=== PATIENT | male | born 1955 | race African-American/Black ===

== ENCOUNTER 2017-03-10 20:54 | Inpatient (IN) | payer MEDICAID ==
[~2017-03-10] VITALS: Ht 167.6 cm; Wt 67.2 kg
[2017-03-11 00:21] LABS: BASOPHILS % 1.1 % (0.0-2.0); EOSINOPHILS % 2.7 % (0.0-5.0); HEMATOCRIT. 28.8 % (42.0-52.0); LYMPHOCYTES % 27.4 % (20.0-50.0); MEAN CORPUSCULAR HEMOGLOBIN 32.5 pg (28.0-32.0); MEAN CORPUSCULAR VOLUME 103.5 fL (80.0-94.0); MEAN PLATELET VOLUME 7.4 fl (7.4-10.4); MONOCYTES % 11.8 % (2.0-8.0); PLATELET 303 x1000/uL (130-400); RED BLOOD CELL COUNT 2.78 mill/uL (4.7-6.1); RED CELL DISTRIBUTION WIDTH 17.2 % (11.6-14.6)
[2017-03-11 00:38] LABS: CARBON DIOXIDE 14 mEq/L (21-32); CHLORIDE 118 mEq/L (98-107); ETHANOL BLOOD < 10 mg/dL; TROPONIN I 0.02 ng/mL (0.00-0.04)
[2017-03-11 01:21] LABS: *AMPHETAMINES SCREEN URINE NEGATIVE (NEGATIVE); *BARBITURATES SCREEN URINE NEGATIVE (NEGATIVE); *BENZODIAZEPINES SCREEN URINE NEGATIVE (NEGATIVE); *COCAINE SCREEN URINE PRESUMTIVE POSITIVE (NEGATIVE); CANNABINOID URINE SCREEN NEGATIVE (NEGATIVE); METHADONE URINE SCREEN NEGATIVE (NEGATIVE); OPIATES URINE SCREEN PRESUMTIVE POSITIVE (NEGATIVE); PHENCYCLIDINE URINE SCREEN NEGATIVE (NEGATIVE)
[2017-03-11] MEDS ORDERED: IPRATROPIUM/ALBUTEROL 0.5-3(2.5)MG/3ML NEB INH PRN (16:15)
[2017-03-11] MEDS ORDERED: DEXTROSE 50% WATER 50ML SYRINGE IV PRN (16:15)
[2017-03-11] MEDS ORDERED: CLONIDINE 0.1MG TABLET PO PRN (16:15)
[2017-03-11] MEDS: BLOOD SUGAR DIAGNOSTIC STRIP TEST SCH ×2 (18:02→23:22)
[2017-03-11] MEDS: AMLODIPINE 10MG TABLET PO SCH (18:03)
[2017-03-11] MEDS ORDERED: INSULIN LISPRO 100 UNITS/ML SUBCUT SCH (18:20)
[2017-03-11 18:22] LABS: BG BASE EXCESS -17.3 mmol/L (-2.0-2.0); BG CARBOXYHEMOGLOBIN 0.3 % (0.5-1.5); BG DEOXYHEMOGLOBIN 3.2 % (0.0-5.0); BG FRACTION INSPIRED OXYGEN 32; BG HCO3 ACT 10.4 mmol/L (22.0-26.0); BG METHEMOGLOBIN 0.2 % (0.0-1.5); BG OXYGEN SATURATION 96.8 % (92.0-98.5); BG OXYHEMOGLOBIN 96.3 % (94.0-97.0); BG PCO2 31.2 mmHg (35.0-45.0); BG PH 7.141 (7.350-7.450); BG SAMPLE SITE RIGHT RADIAL; BG TOTAL HEMOGLOBIN 11.1 g/dL (12.0-18.0); BG VENT MODE NASAL CANNULA
[2017-03-11 21:06] LABS: BASOPHILS % 0.5 % (0.0-2.0); EOSINOPHILS % 0.1 % (0.0-5.0); HEMATOCRIT. 30.5 % (42.0-52.0); HEMOGLOBIN. 9.6 g/dL (14.0-18.0); LYMPHOCYTES % 7.8 % (20.0-50.0); MEAN CORPUSCULAR HEMOGLOBIN 32.6 pg (28.0-32.0); MEAN CORPUSCULAR VOLUME 104.1 fL (80.0-94.0); MEAN PLATELET VOLUME 7.5 fl (7.4-10.4); MONOCYTES % 5.5 % (2.0-8.0); NEUTROPHILS % 86.1 % (40.0-76.0); PLATELET 306 x1000/uL (130-400); RED BLOOD CELL COUNT 2.93 mill/uL (4.7-6.1); RED CELL DISTRIBUTION WIDTH 17.5 % (11.6-14.6)
[2017-03-11 23:05] VITALS: BP 139/49
[2017-03-11 23:07] LABS: TROPONIN I 0.03 ng/mL (0.00-0.04)
[2017-03-11 23:15] VITALS: BP 132/81
[2017-03-11 23:30] VITALS: BP_SYST 115; BP_SYST 139; BP_DIAS 49; BP_DIAS 76
[2017-03-11 23:47] VITALS: BP 129/77
[2017-03-12] VITALS (82 sets, daily range): BP systolic 82–145; BP diastolic 48–107
[2017-03-12] MEDS ORDERED: SODIUM BICARBONATE 8.4% 1 MEQ/ML 50ML SYR IV NR ×2 (00:30→08:30)
[2017-03-12 00:41] LABS: CLARITY URINE CLEAR (CLEAR); COLOR URINE YELLOW (YELLOW); GLUCOSE URINE 1+ (NEGATIVE); KETONES URINE TRACE (NEGATIVE); LEUKOCYTE ESTERASE URINE NEGATIVE (NEGATIVE); NITRITE URINE NEGATIVE (NEGATIVE); OCCULT BLOOD URINE 2+ (NEGATIVE); PROTEIN URINE 4+ (NEGATIVE); SPECIFIC GRAVITY URINE 1.018 (1.005-1.030); UROBILINOGEN URINE 0.2 E.U./dL (0.2-1.0)
[2017-03-12] MEDS ORDERED: SODIUM POLYSTYRENE SULFONATE 15 G/60 ML BOT PO NR (01:00)
[2017-03-12] MEDS: SODIUM BICARBONATE 100 MEQ in DEXTROSE 5% WATER 1,000 ML IV SCH ×2 (03:09→18:52)
[2017-03-12 06:07] LABS: BASOPHILS % 0.2 % (0.0-2.0); EOSINOPHILS % 0.2 % (0.0-5.0); HEMATOCRIT. 30.5 % (42.0-52.0); HEMOGLOBIN. 9.4 g/dL (14.0-18.0); LYMPHOCYTES % 7.2 % (20.0-50.0); MEAN CORPUSCULAR HEMOGLOBIN 32.1 pg (28.0-32.0); MEAN CORPUSCULAR VOLUME 104.4 fL (80.0-94.0); MEAN PLATELET VOLUME 8.2 fl (7.4-10.4); MONOCYTES % 5.8 % (2.0-8.0); NEUTROPHILS % 86.6 % (40.0-76.0); PLATELET 302 x1000/uL (130-400); RED BLOOD CELL COUNT 2.93 mill/uL (4.7-6.1); RED CELL DISTRIBUTION WIDTH 17.4 % (11.6-14.6)
[2017-03-12 07:15] LABS: CHLORIDE 121 mEq/L (98-107); CREATINE KINASE 936 IU/L (39-308); HDL CHOLESTEROL 78 mg/dL (40-59); LDL CHOLESTEROL 129 mg/dL (5-100); TROPONIN I 0.05 ng/mL (0.00-0.04)
[2017-03-12 07:35] LABS: CARBON DIOXIDE 15 mEq/L (21-32)
[2017-03-12 07:55] LABS: PHOSPHORUS 9.9 mg/dL (2.5-4.9)
[2017-03-12 08:01] LABS: HEPATITIS B SURFACE ANTIGEN NEGATIVE
[2017-03-12] MEDS: INSULIN LISPRO 100 UNITS/ML SUBCUT SCH ×4 (08:20→20:45)
[2017-03-12 08:29] LABS: BG BASE EXCESS -12.4 mmol/L (-2.0-2.0); BG DEOXYHEMOGLOBIN 3.7 % (0.0-5.0); BG FRACTION INSPIRED OXYGEN 28; BG HCO3 ACT 14.9 mmol/L (22.0-26.0); BG METHEMOGLOBIN 0.3 % (0.0-1.5); BG OXYGEN SATURATION 96.3 % (92.0-98.5); BG PCO2 39.3 mmHg (35.0-45.0); BG PH 7.196 (7.350-7.450); BG PO2 94.7 mmHg (75.0-100.0); BG SAMPLE SITE RIGHT RADIAL; BG TOTAL HEMOGLOBIN 9.8 g/dL (12.0-18.0); BG VENT MODE NASAL CANNULA
[2017-03-12] MEDS: BLOOD SUGAR DIAGNOSTIC STRIP TEST SCH ×4 (08:32→20:45)
[2017-03-12 09:29] LABS: HEPATITIS B CORE AB IGM NEGATIVE
[2017-03-12 09:30] LABS: HEPATITIS A AB IGM NEGATIVE (NEGATIVE)
[2017-03-12] MEDS ORDERED: PIPERACILLIN/TAZ 3.375G PREMIX 50 ML IV SCH (10:15)
[2017-03-12] MEDS: PANTOPRAZOLE SODIUM 40 MG/VIAL IV SCH (11:09)
[2017-03-12] MEDS: AMLODIPINE 10MG TABLET PO SCH (11:09)
[2017-03-12 11:44] LABS: PROTHROMBIN TIME 10.4 sec (9.4-11.6)
[2017-03-12 11:48] LABS: CLARITY URINE CLEAR (CLEAR); COLOR URINE YELLOW (YELLOW); GLUCOSE URINE 2+ (NEGATIVE); KETONES URINE TRACE (NEGATIVE); LEUKOCYTE ESTERASE URINE NEGATIVE (NEGATIVE); NITRITE URINE NEGATIVE (NEGATIVE); OCCULT BLOOD URINE 2+ (NEGATIVE); PH URINE 6.5 (4.5-8.0); PROTEIN URINE 4+ (NEGATIVE); UROBILINOGEN URINE 0.2 E.U./dL (0.2-1.0)
[2017-03-12] MEDS: LORAZEPAM 2MG/ML CPJ IV PRN (11:59)
[2017-03-12] MEDS ORDERED: VANCOMYCIN 1 G PREMIX 200 ML IV NR (12:00)
[2017-03-12] MEDS: MORPHINE SULFATE 4 MG/ML CPJ (NOT FOR IM USE) IV PRN (13:14)
[2017-03-12] MEDS ORDERED: LORAZEPAM 2MG/ML CPJ IV NR (13:15)
[2017-03-12] MEDS: ENOXAPARIN 30MG/0.3ML SYR SUBCUT SCH (13:26)
[2017-03-12] MEDS ORDERED: NOREPINEPHRINE 8 MG in DEXT 5% WATER 242 ML IV PRN (16:00)
[2017-03-12] MEDS: IPRATROPIUM/ALBUTEROL 0.5-3(2.5)MG/3ML NEB HHN SCH ×2 (16:23→19:48)
[2017-03-12] MEDS ORDERED: BISACODYL 10MG SUPP PR PRN (17:45)
[2017-03-12] MEDS ORDERED: NA PHOS,M-B/NA PHOS,DI-BA ENEMA 118ML PR NR (18:00)
[2017-03-12] MEDS: PIPERACILLIN/TAZ 2.25G PREMIX 50 ML IV SCH ×2 (18:16→21:40)
[2017-03-12] MEDS ORDERED: NA PHOS,M-B/NA PHOS,DI-BA ENEMA 118ML PR PRN (18:28)
[2017-03-13] VITALS (65 sets, daily range): BP systolic 88–163; BP diastolic 55–92
[2017-03-13] MEDS: IPRATROPIUM/ALBUTEROL 0.5-3(2.5)MG/3ML NEB HHN SCH ×4 (02:05→20:07)
[2017-03-13 07:33] LABS: HEMATOCRIT. 26.5 % (42.0-52.0); HEMOGLOBIN. 8.5 g/dL (14.0-18.0); MEAN CORPUSCULAR VOLUME 99.4 fL (80.0-94.0); MEAN PLATELET VOLUME 8.5 fl (7.4-10.4); PLATELET 241 x1000/uL (130-400); RED BLOOD CELL COUNT 2.67 mill/uL (4.7-6.1); RED CELL DISTRIBUTION WIDTH 16.9 % (11.6-14.6)
[2017-03-13] MEDS: BLOOD SUGAR DIAGNOSTIC STRIP TEST SCH ×4 (07:50→22:33)
[2017-03-13] MEDS ORDERED: POTASSIUM CHLORIDE 20MEQ TABLET SR PO SCH (08:15)
[2017-03-13] MEDS: INSULIN LISPRO 100 UNITS/ML SUBCUT SCH ×3 (08:20→22:30)
[2017-03-13 09:07] LABS: ABSOLUTE MONOCYTES 0.7 x10E3/uL (0.1-0.9); ABSOLUTE NEUTROPHILS 11.2 x10E3/uL (1.4-7.0); BASOPHILS 0 % (.); HEMATOCRIT 29.1 % (37.5-51.0); HEMOGLOBIN 9.1 g/dL (12.6-17.7); IMMATURE GRANULOCYTES 0 % (.); LYMPHOCYTES 8 % (.); MEAN CORPUSCULAR HEMOGLOBIN 31.5 pg (26.6-33.0); MEAN CORPUSCULAR HGB CONC. 31.3 g/dL (31.5-35.7); MEAN CORPUSCULAR VOLUME 101 fL (79-97); MONOCYTES 5 % (.); NEUTROPHILS 87 % (.); PLATELETS 348 x10E3/uL (150-379); RBC 2.89 x10E6/uL (4.14-5.80); RED CELL DISTRIBUTION WIDTH 16.5 % (12.3-15.4)
[2017-03-13] MEDS: PANTOPRAZOLE SODIUM 40 MG/VIAL IV SCH (09:25)
[2017-03-13] MEDS: SODIUM CHLORIDE 0.45% 1,000 ML IV SCH (09:26)
[2017-03-13] MEDS: AMLODIPINE 5MG TABLET PO SCH ×2 (09:26→22:36)
[2017-03-13] MEDS: ENOXAPARIN 30MG/0.3ML SYR SUBCUT SCH (09:27)
[2017-03-13] MEDS ORDERED: VANCOMYCIN 500 MG PREMIX 100 ML IV SCH (12:00)
[2017-03-13 13:12] LABS: % CD 3 POS. LYMPHOCYTES 83.3 % (57.5-86.2); % CD 4 POS. LYMPHOCYTES 33.1 % (30.8-58.5); % CD 8 POS. LYMPH 49.7 % (12.0-35.5); ABSOLUTE CD 3 833 /uL (622-2402); ABSOLUTE CD 4 HELPER 331 /uL (359-1519); ABSOLUTE CD 8 SUPPRESSOR 497 /uL (109-897); CD4/CD8 RATIO 0.67 (0.92-3.72)
[2017-03-13] MEDS: PIPERACILLIN/TAZ 2.25G PREMIX 50 ML IV SCH ×2 (13:22→23:05)
[2017-03-13] MEDS: MORPHINE SULFATE 4 MG/ML CPJ (NOT FOR IM USE) IV PRN ×2 (13:22→20:13)
[2017-03-13] MEDS: LEVOTHYROXINE SODIUM 50MCG TABLET PO SCH (13:22)
[2017-03-13 14:09] LABS: PLATELET ESTIMATE NORMAL
[2017-03-14] VITALS (14 sets, daily range): BP systolic 92–123; BP diastolic 53–82
[2017-03-14] MEDS: IPRATROPIUM/ALBUTEROL 0.5-3(2.5)MG/3ML NEB HHN SCH ×4 (01:44→21:13)
[2017-03-14] MEDS: LEVOTHYROXINE SODIUM 50MCG TABLET PO SCH (05:59)
[2017-03-14] MEDS: PIPERACILLIN/TAZ 2.25G PREMIX 50 ML IV SCH ×3 (05:59→21:05)
[2017-03-14] MEDS: BLOOD SUGAR DIAGNOSTIC STRIP TEST SCH ×4 (06:01→21:09)
[2017-03-14] MEDS: INSULIN LISPRO 100 UNITS/ML SUBCUT SCH ×4 (07:20→21:00)
[2017-03-14 07:32] LABS: BASOPHILS % 0.4 % (0.0-2.0); EOSINOPHILS % 1.7 % (0.0-5.0); HEMATOCRIT. 26.2 % (42.0-52.0); HEMOGLOBIN. 8.4 g/dL (14.0-18.0); LYMPHOCYTES % 12.5 % (20.0-50.0); MEAN CORPUSCULAR VOLUME 99.1 fL (80.0-94.0); MEAN PLATELET VOLUME 8.4 fl (7.4-10.4); MONOCYTES % 7.9 % (2.0-8.0); NEUTROPHILS % 77.5 % (40.0-76.0); PLATELET 246 x1000/uL (130-400); RED BLOOD CELL COUNT 2.64 mill/uL (4.7-6.1); RED CELL DISTRIBUTION WIDTH 16.4 % (11.6-14.6)
[2017-03-14] MEDS ORDERED: HEPARIN SODIUM 1,000 UNIT/1ML VIAL IV NR (09:00)
[2017-03-14] MEDS: MORPHINE SULFATE 4 MG/ML CPJ (NOT FOR IM USE) IV PRN (09:04)
[2017-03-14 09:17] LABS: PHOSPHORUS 8.7 mg/dL (2.5-4.9)
[2017-03-14] MEDS: PANTOPRAZOLE SODIUM 40 MG/VIAL IV SCH (10:49)
[2017-03-14] MEDS: ONDANSETRON HCL 4MG/2ML VIAL IV PRN (10:49)
[2017-03-14] MEDS: ENOXAPARIN 30MG/0.3ML SYR SUBCUT SCH (10:51)
[2017-03-14] MEDS: AMLODIPINE 5MG TABLET PO SCH ×2 (10:51→21:00)
[2017-03-14] MEDS ORDERED: TAMS0.4C31 PO (11:47)
[2017-03-14] MEDS ORDERED: MOME13HF INH (11:47)
[2017-03-14] MEDS ORDERED: FOLI-43 PO (11:47)
[2017-03-14] MEDS ORDERED: AMLO10TA80 PO (11:47)
[2017-03-14] MEDS ORDERED: CLOT45CR7 TP (11:47)
[2017-03-14] MEDS ORDERED: CITR30SO2 PO (11:47)
[2017-03-14] MEDS ORDERED: REN800 PO (11:47)
[2017-03-14] MEDS ORDERED: ABAC1TAB14 PO (11:47)
[2017-03-14] MEDS ORDERED: ZIAG3 PO (11:47)
[2017-03-14] MEDS ORDERED: DOLU50TA PO (11:47)
[2017-03-14] MEDS ORDERED: LORA0.5T2 PO (11:47)
[2017-03-14] MEDS ORDERED: LAMI100T PO (11:47)
[2017-03-14] MEDS: SODIUM CHLORIDE 0.45% 1,000 ML IV SCH (12:20)
[2017-03-14] MEDS ORDERED: VANCOMYCIN 1 G PREMIX 200 ML IV NR (14:00)
[2017-03-14] MEDS: LORAZEPAM 2MG/ML CPJ IV PRN (21:22)
[2017-03-15] VITALS (12 sets, daily range): BP systolic 104–145; BP diastolic 61–85
[2017-03-15] MEDS: IPRATROPIUM/ALBUTEROL 0.5-3(2.5)MG/3ML NEB HHN SCH ×2 (02:21→20:48)
[2017-03-15] MEDS: PIPERACILLIN/TAZ 2.25G PREMIX 50 ML IV SCH ×3 (05:41→22:10)
[2017-03-15] MEDS: BLOOD SUGAR DIAGNOSTIC STRIP TEST SCH ×4 (05:50→21:00)
[2017-03-15] MEDS: SODIUM CHLORIDE 0.45% 1,000 ML IV SCH ×2 (05:50→23:37)
[2017-03-15] MEDS: LEVOTHYROXINE SODIUM 50MCG TABLET PO SCH (05:50)
[2017-03-15] MEDS: INSULIN LISPRO 100 UNITS/ML SUBCUT SCH ×4 (07:20→21:00)
[2017-03-15] MEDS: AMLODIPINE 5MG TABLET PO SCH ×2 (09:00→21:13)
[2017-03-15] MEDS: PANTOPRAZOLE SODIUM 40 MG/VIAL IV SCH (10:26)
[2017-03-15] MEDS: MUPIROCIN 2% OINT 22GM NS SCH ×2 (10:27→21:12)
[2017-03-15] MEDS: ENOXAPARIN 30MG/0.3ML SYR SUBCUT SCH (10:29)
[2017-03-15] MEDS: ONDANSETRON HCL 4MG/2ML VIAL IV PRN (10:51)
[2017-03-15] MEDS: TIVICAY (DOLUTEGRAVIR) 50MG TABLET PO SCH (14:21)
[2017-03-15] MEDS: MORPHINE SULFATE 4 MG/ML CPJ (NOT FOR IM USE) IV PRN ×2 (14:21→18:42)
[2017-03-15] MEDS: TRIUMEQ PO SCH (14:22)
[2017-03-15] MEDS: TAMSULOSIN HCL 0.4MG SR CAPSULE PO SCH (21:13)
[2017-03-15] MEDS: HYDROCODONE/ACETAMINOPHEN 10/325MG TABLET PO PRN (22:21)
[2017-03-16] VITALS (12 sets, daily range): BP systolic 96–158; BP diastolic 58–88
[2017-03-16] MEDS: IPRATROPIUM/ALBUTEROL 0.5-3(2.5)MG/3ML NEB HHN SCH ×3 (01:32→21:52)
[2017-03-16] MEDS: PIPERACILLIN/TAZ 2.25G PREMIX 50 ML IV SCH ×3 (05:59→21:42)
[2017-03-16 06:03] LABS: BASOPHILS % 0.6 % (0.0-2.0); EOSINOPHILS % 3.6 % (0.0-5.0); HEMATOCRIT. 25.1 % (42.0-52.0); HEMOGLOBIN. 8.2 g/dL (14.0-18.0); LYMPHOCYTES % 18.8 % (20.0-50.0); MEAN CORPUSCULAR HEMOGLOBIN 32.4 pg (28.0-32.0); MEAN CORPUSCULAR VOLUME 99.5 fL (80.0-94.0); MEAN PLATELET VOLUME 7.9 fl (7.4-10.4); MONOCYTES % 9.5 % (2.0-8.0); NEUTROPHILS % 67.5 % (40.0-76.0); PLATELET 231 x1000/uL (130-400); RED BLOOD CELL COUNT 2.52 mill/uL (4.7-6.1); RED CELL DISTRIBUTION WIDTH 16.1 % (11.6-14.6)
[2017-03-16] MEDS: LEVOTHYROXINE SODIUM 50MCG TABLET PO SCH (06:07)
[2017-03-16] MEDS: ONDANSETRON HCL 4MG/2ML VIAL IV PRN (06:18)
[2017-03-16] MEDS: BLOOD SUGAR DIAGNOSTIC STRIP TEST SCH ×4 (06:48→21:00)
[2017-03-16] MEDS: INSULIN LISPRO 100 UNITS/ML SUBCUT SCH ×4 (07:10→21:00)
[2017-03-16] MEDS: AMLODIPINE 5MG TABLET PO SCH ×2 (08:18→21:38)
[2017-03-16] MEDS: MUPIROCIN 2% OINT 22GM NS SCH ×2 (08:18→21:38)
[2017-03-16] MEDS: ENOXAPARIN 30MG/0.3ML SYR SUBCUT SCH (08:18)
[2017-03-16] MEDS: PANTOPRAZOLE SODIUM 40 MG/VIAL IV SCH (08:18)
[2017-03-16] MEDS: TIVICAY (DOLUTEGRAVIR) 50MG TABLET PO SCH (08:19)
[2017-03-16] MEDS: TRIUMEQ PO SCH (08:19)
[2017-03-16] MEDS ORDERED: POTASSIUM CHLORIDE 20MEQ TABLET SR PO NR (08:30)
[2017-03-16] MEDS ORDERED: MEDICATION NOT ON FORMULARY EA (Dolutegravir Sodium (Tivicay) 50 MG) PO SCH (09:00)
[2017-03-16] MEDS ORDERED: MEDICATION NOT ON FORMULARY EA (Abacavir/Dolutegravir/Lamivudi (Triumeq Tablet) 1 EACH) PO SCH (09:00)
[2017-03-16] MEDS ORDERED: LAMIVUDINE 100 MG PO SCH (09:00)
[2017-03-16] MEDS: FOLIC ACID/VITAMIN B COMP W-C TABLET PO SCH (09:14)
[2017-03-16] MEDS: SEVELAMER CARBONATE 800 MG TABLET PO SCH ×2 (12:20→18:19)
[2017-03-16] MEDS: HYDROCODONE/ACETAMINOPHEN 10/325MG TABLET PO PRN (14:29)
[2017-03-16] MEDS: SODIUM CHLORIDE 0.45% 1,000 ML IV SCH (16:15)
[2017-03-16] MEDS: MORPHINE SULFATE 4 MG/ML CPJ (NOT FOR IM USE) IV PRN (16:33)
[2017-03-16] MEDS ORDERED: LIDOCAINE HCL 4% CREAM 76GM TUBE TP PRN (20:00)
[2017-03-16] MEDS: TAMSULOSIN HCL 0.4MG SR CAPSULE PO SCH (21:37)
[2017-03-17] VITALS (12 sets, daily range): BP systolic 111–153; BP diastolic 65–95
[2017-03-17] MEDS: PIPERACILLIN/TAZ 2.25G PREMIX 50 ML IV SCH ×3 (06:03→21:32)
[2017-03-17] MEDS: LEVOTHYROXINE SODIUM 50MCG TABLET PO SCH (06:17)
[2017-03-17] MEDS: BLOOD SUGAR DIAGNOSTIC STRIP TEST SCH ×4 (06:50→21:29)
[2017-03-17] MEDS: MORPHINE SULFATE 4 MG/ML CPJ (NOT FOR IM USE) IV PRN (06:56)
[2017-03-17] MEDS: SEVELAMER CARBONATE 800 MG TABLET PO SCH ×3 (07:20→17:23)
[2017-03-17] MEDS: INSULIN LISPRO 100 UNITS/ML SUBCUT SCH ×4 (07:20→21:00)
[2017-03-17 07:55] LABS: BASOPHILS % 0.6 % (0.0-2.0); EOSINOPHILS % 3.9 % (0.0-5.0); HEMATOCRIT. 25.4 % (42.0-52.0); HEMOGLOBIN. 8.1 g/dL (14.0-18.0); LYMPHOCYTES % 19.1 % (20.0-50.0); MEAN CORPUSCULAR VOLUME 100.8 fL (80.0-94.0); MONOCYTES % 11.2 % (2.0-8.0); NEUTROPHILS % 65.2 % (40.0-76.0); PLATELET 188 x1000/uL (130-400); RED BLOOD CELL COUNT 2.52 mill/uL (4.7-6.1); RED CELL DISTRIBUTION WIDTH 16.2 % (11.6-14.6)
[2017-03-17] MEDS: MUPIROCIN 2% OINT 22GM NS SCH ×2 (08:20→21:00)
[2017-03-17] MEDS: PANTOPRAZOLE SODIUM 40 MG/VIAL IV SCH (08:20)
[2017-03-17] MEDS: ENOXAPARIN 30MG/0.3ML SYR SUBCUT SCH (08:23)
[2017-03-17] MEDS: AMLODIPINE 5MG TABLET PO SCH ×2 (08:26→21:29)
[2017-03-17] MEDS: TRIUMEQ PO SCH ×2 (08:26→17:25)
[2017-03-17] MEDS: TIVICAY (DOLUTEGRAVIR) 50MG TABLET PO SCH ×2 (08:26→17:25)
[2017-03-17] MEDS: FOLIC ACID/VITAMIN B COMP W-C TABLET PO SCH (08:26)
[2017-03-17] MEDS: IPRATROPIUM/ALBUTEROL 0.5-3(2.5)MG/3ML NEB HHN SCH ×3 (09:36→20:52)
[2017-03-17] MEDS: SODIUM CHLORIDE 0.45% 1,000 ML IV SCH (13:03)
[2017-03-17] MEDS: ONDANSETRON HCL 4MG/2ML VIAL IV PRN (13:41)
[2017-03-17] MEDS ORDERED: VANCOMYCIN 500 MG PREMIX 100 ML IV SCH (14:00)
[2017-03-17] MEDS: HYDROCODONE/ACETAMINOPHEN 10/325MG TABLET PO PRN (19:02)
[2017-03-17] MEDS: TAMSULOSIN HCL 0.4MG SR CAPSULE PO SCH (21:29)
[2017-03-18] VITALS (14 sets, daily range): BP systolic 92–149; BP diastolic 54–81
[2017-03-18] MEDS: MORPHINE SULFATE 4 MG/ML CPJ (NOT FOR IM USE) IV PRN ×3 (00:06→22:36)
[2017-03-18] MEDS: IPRATROPIUM/ALBUTEROL 0.5-3(2.5)MG/3ML NEB HHN SCH ×4 (01:22→20:55)
[2017-03-18] MEDS: PIPERACILLIN/TAZ 2.25G PREMIX 50 ML IV SCH ×3 (06:00→21:12)
[2017-03-18] MEDS: LEVOTHYROXINE SODIUM 50MCG TABLET PO SCH (06:20)
[2017-03-18] MEDS: INSULIN LISPRO 100 UNITS/ML SUBCUT SCH ×4 (06:38→21:00)
[2017-03-18] MEDS: BLOOD SUGAR DIAGNOSTIC STRIP TEST SCH ×4 (06:38→21:08)
[2017-03-18] MEDS: SEVELAMER CARBONATE 800 MG TABLET PO SCH ×3 (07:20→17:13)
[2017-03-18 07:48] LABS: EOSINOPHILS % 3.3 % (0.0-5.0); HEMATOCRIT. 26.6 % (42.0-52.0); HEMOGLOBIN. 8.5 g/dL (14.0-18.0); LYMPHOCYTES % 23.5 % (20.0-50.0); MEAN CORPUSCULAR HEMOGLOBIN 32.4 pg (28.0-32.0); MEAN PLATELET VOLUME 8.1 fl (7.4-10.4); MONOCYTES % 11.3 % (2.0-8.0); NEUTROPHILS % 60.9 % (40.0-76.0); PLATELET 197 x1000/uL (130-400); RED BLOOD CELL COUNT 2.63 mill/uL (4.7-6.1); RED CELL DISTRIBUTION WIDTH 16.4 % (11.6-14.6)
[2017-03-18] MEDS: SODIUM CHLORIDE 0.45% 1,000 ML IV SCH (08:15)
[2017-03-18] MEDS: ENOXAPARIN 30MG/0.3ML SYR SUBCUT SCH (08:21)
[2017-03-18] MEDS: PANTOPRAZOLE SODIUM 40 MG/VIAL IV SCH (08:44)
[2017-03-18] MEDS: MUPIROCIN 2% OINT 22GM NS SCH ×2 (08:44→21:12)
[2017-03-18] MEDS: AMLODIPINE 5MG TABLET PO SCH ×2 (08:54→21:12)
[2017-03-18] MEDS: TIVICAY (DOLUTEGRAVIR) 50MG TABLET PO SCH (13:01)
[2017-03-18] MEDS: TRIUMEQ PO SCH (13:01)
[2017-03-18] MEDS: FOLIC ACID/VITAMIN B COMP W-C TABLET PO SCH (13:01)
[2017-03-18] MEDS: ONDANSETRON HCL 4MG/2ML VIAL IV PRN (13:09)
[2017-03-18] MEDS: HYDROCODONE/ACETAMINOPHEN 10/325MG TABLET PO PRN (16:40)
[2017-03-18] MEDS: TAMSULOSIN HCL 0.4MG SR CAPSULE PO SCH (21:12)
[2017-03-19] VITALS (17 sets, daily range): BP systolic 105–145; BP diastolic 45–85
[2017-03-19] MEDS: IPRATROPIUM/ALBUTEROL 0.5-3(2.5)MG/3ML NEB HHN SCH ×3 (01:18→13:01)
[2017-03-19] MEDS: SODIUM CHLORIDE 0.45% 1,000 ML IV SCH (04:15)
[2017-03-19] MEDS: PIPERACILLIN/TAZ 2.25G PREMIX 50 ML IV SCH ×2 (06:00→14:00)
[2017-03-19] MEDS: MORPHINE SULFATE 4 MG/ML CPJ (NOT FOR IM USE) IV PRN (06:11)
[2017-03-19] MEDS: LEVOTHYROXINE SODIUM 50MCG TABLET PO SCH (06:12)
[2017-03-19] MEDS: BLOOD SUGAR DIAGNOSTIC STRIP TEST SCH ×3 (06:12→15:58)
[2017-03-19 06:29] LABS: HEMOGLOBIN 7.7 g/dL (14.0-18.0); MEAN CORPUSCULAR HEMOGLOBIN 32.3 pg (28.0-32.0); MEAN CORPUSCULAR VOLUME 100.3 fL (80.0-94.0); PLATELET 188 x1000/uL (130-400); RED BLOOD CELL COUNT 2.39 mill/uL (4.7-6.1); RED CELL DISTRIBUTION WIDTH 16.1 % (11.6-14.6)
[2017-03-19] MEDS: INSULIN LISPRO 100 UNITS/ML SUBCUT SCH ×3 (07:20→15:58)
[2017-03-19] MEDS: SEVELAMER CARBONATE 800 MG TABLET PO SCH ×3 (07:20→16:47)
[2017-03-19] MEDS ORDERED: LIDOCAINE HCL 1% 20ML VIAL (Pyxis) INJ ONE (07:39)
[2017-03-19] MEDS ORDERED: SODIUM BICARBONATE 4% (2.4MEQ) 5ML VIAL IV ONE (07:39)
[2017-03-19] MEDS: ENOXAPARIN 30MG/0.3ML SYR SUBCUT SCH (08:51)
[2017-03-19] MEDS: FOLIC ACID/VITAMIN B COMP W-C TABLET PO SCH (09:00)
[2017-03-19] MEDS: MUPIROCIN 2% OINT 22GM NS SCH (09:00)
[2017-03-19] MEDS: AMLODIPINE 5MG TABLET PO SCH (09:00)
[2017-03-19] MEDS: TRIUMEQ PO SCH (09:00)
[2017-03-19] MEDS: TIVICAY (DOLUTEGRAVIR) 50MG TABLET PO SCH (09:00)
[2017-03-19] MEDS: PANTOPRAZOLE SODIUM 40 MG/VIAL IV SCH (09:00)
[2017-03-19] MEDS: HYDROCODONE/ACETAMINOPHEN 10/325MG TABLET PO PRN ×2 (10:18→16:46)
[2017-03-19] MEDS ORDERED: MOME13HF INH (15:41)
[2017-03-19] MEDS ORDERED: TAMS-11 PO (15:41)
[2017-03-19] MEDS ORDERED: AMLO5TAB88 PO (15:41)
[2017-03-19] MEDS ORDERED: DOLU50TA PO (15:41)
[2017-03-19] MEDS ORDERED: LAMI100T PO (15:41)
[2017-03-19] MEDS ORDERED: ZIAG3 PO (15:41)
[2017-03-19] MEDS ORDERED: SEVE800T8 PO (15:41)
[2017-03-19] MEDS ORDERED: TRAM50TA3 PO (15:41)
[2017-03-19] MEDS ORDERED: NEPVIT PO (15:41)
[2017-03-19] MEDS ORDERED: LEVO50TA8 PO (15:41)
[2017-03-19] MEDS ORDERED: ABAC1TAB14 PO (15:41)
[2017-03-19 19:45] LABS: HEMATOCRIT 29.7 % (42.0-52.0); HEMOGLOBIN 9.6 g/dL (14.0-18.0)
== END 2017-03-19 21:10 | disposition home or self-care (01) | DRG 890 ==
LOC: ER 20:54 → ENRESERV 03-11 13:13 → CANRESERV 03-11 13:13 → CVICU 03-11 18:35 → EDBEDREQ 03-11 18:38 → EDBEDREQSVC 03-11 18:38 → ENRESERV 03-11 22:25 → 3WST 03-13 21:15
PROVIDERS: ADMIT Internal Medicine; ATTEND Internal Medicine
PROC: 02HV33Z Insertion of Infusion Device into Superior Vena Cava, Percutaneous Approach (ICD-10-PCS; principal; 2017-03-12)
PROC: B548ZZA Ultrasonography of Superior Vena Cava, Guidance (ICD-10-PCS; 2017-03-12)
PROC: 5A1D60Z (ICD-10-PCS; 2017-03-12)
PROC: 02HV33Z Insertion of Infusion Device into Superior Vena Cava, Percutaneous Approach (ICD-10-PCS; 2017-03-19)
PROC: B5181ZA Fluoroscopy of Superior Vena Cava using Low Osmolar Contrast, Guidance (ICD-10-PCS; 2017-03-19)
PROC: 30233N1 Transfusion of Nonautologous Red Blood Cells into Peripheral Vein, Percutaneous Approach (ICD-10-PCS; 2017-03-19)
PROC: 05PY33Z Removal of Infusion Device from Upper Vein, Percutaneous Approach (ICD-10-PCS; 2017-03-19)
DX: B20 Human immunodeficiency virus [HIV] disease (principal); J96.90 Respiratory failure, unspecified, unspecified whether with hypoxia or hypercapnia; A41.9 Sepsis, unspecified organism; G93.41 Metabolic encephalopathy; E43 Unspecified severe protein-calorie malnutrition; N17.9 Acute kidney failure, unspecified; I12.0 Hypertensive chronic kidney disease with stage 5 chronic kidney disease or end stage renal disease; N18.6 End stage renal disease; E87.2 Acidosis; I42.9 Cardiomyopathy, unspecified; E87.0 Hyperosmolality and hypernatremia; E87.5 Hyperkalemia; F11.90 Opioid use, unspecified, uncomplicated; F14.90 Cocaine use, unspecified, uncomplicated; K80.20 Calculus of gallbladder without cholecystitis without obstruction; B19.20 Unspecified viral hepatitis C without hepatic coma; E11.22 Type 2 diabetes mellitus with diabetic chronic kidney disease; M62.82 Rhabdomyolysis; Z91.14 Patient's other noncompliance with medication regimen; Z91.19 Patient's noncompliance with other medical treatment and regimen; R45.1 Restlessness and agitation; F19.10 Other psychoactive substance abuse, uncomplicated; D64.9 Anemia, unspecified; J44.1 Chronic obstructive pulmonary disease with (acute) exacerbation; F17.210 Nicotine dependence, cigarettes, uncomplicated; Z68.23 Body mass index [BMI] 23.0-23.9, adult
CPT/HCPCS: 36415; 36558; 36569; 36589; 36600; 70450; 71010; 74176; 76937; 77001; 80048; 80053; 80061; 80202; 80305; 81001; 82375; 82550; 82805; 82962; 83735; 83880; 84100; 84443; 84484; 85014; 85018; 85025; 85027; 85610; 86359; 86360; 86705; 86706; 86709; 86803; 86850; 86900; 86920; 87040; 87086; 87340; 92610; 93005; 93306; 93970; 94640; 94664; 97110; 97112; 97116; 97162; 97166; 97530; 99285; A6261; C1725; C1750; C9113; G0482; J1642; J1644; J1650; J2060; J2270; J2405; J2543; J3370; J3490; J7030; J7040; J7050; J7060; J7070; J7620; P9016

== ENCOUNTER 2017-04-29 18:10 | Inpatient (IN) | payer MEDICAID ==
[~2017-04-29] VITALS: Ht 165.1 cm; Wt 60.3 kg
[~2017-04-29 18:10] MED LIST: ABAC1TAB14 PO; AMLO5TAB88 PO; CITR30SO2 PO; CLOT45CR7 TP; DOLU50TA PO; FOLI-43 PO; LAMI100T PO; LEVO50TA8 PO; LORA0.5T2 PO; MOME13HF INH; NEPVIT PO; REN800 PO; SEVE800T8 PO; TAMS-11 PO; TRAM50TA3 PO; ZIAG3 PO
[2017-04-29 19:14] LABS: BASOPHILS % 0.6 % (0.0-2.0); EOSINOPHILS % 2.2 % (0.0-5.0); HEMATOCRIT. 33.9 % (42.0-52.0); HEMOGLOBIN. 10.9 g/dL (14.0-18.0); LYMPHOCYTES % 25.2 % (20.0-50.0); MEAN CORPUSCULAR VOLUME 105.4 fL (80.0-94.0); MEAN PLATELET VOLUME 6.8 fl (7.4-10.4); MONOCYTES % 7.3 % (2.0-8.0); NEUTROPHILS % 64.7 % (40.0-76.0); PLATELET 246 x1000/uL (130-400); RED BLOOD CELL COUNT 3.21 mill/uL (4.7-6.1); RED CELL DISTRIBUTION WIDTH 20.1 % (11.6-14.6)
[2017-04-29 19:21] LABS: PROTHROMBIN TIME 10.2 sec (9.4-11.6)
[2017-04-29 19:27] LABS: CARBON DIOXIDE 29 mEq/L (21-32); CHLORIDE 104 mEq/L (98-107); ETHANOL BLOOD < 10 mg/dL
[2017-04-29 19:32] LABS: TROPONIN I 0.03 ng/mL (0.00-0.04)
[2017-04-29] MEDS ORDERED: ONDANSETRON HCL 4MG/2ML VIAL IV PRN (23:00)
[2017-04-29] MEDS ORDERED: CLONIDINE 0.1MG TABLET PO PRN (23:00)
[2017-04-29] MEDS ORDERED: DOCUSATE SODIUM 100MG CAPSULE PO PRN (23:00)
[2017-04-29] MEDS ORDERED: GUAIFENESIN 200MG/10ML SUGAR FREE UDC PO PRN (23:00)
[2017-04-29] MEDS ORDERED: ACETAMINOPHEN 325MG TABLET PO PRN (23:00)
[2017-04-29] MEDS ORDERED: MAGNESIUM/ALUMINUM HYDROXIDE/SIMETHICONE 30ML UDC PO PRN (23:00)
[2017-04-29] MEDS: HYDROCODONE/ACETAMINOPHEN 5/325MG TABLET PO PRN (23:27)
[2017-04-29 23:39] VITALS: BP 126/69
[2017-04-30] VITALS (7 sets, daily range): BP systolic 95–142; BP diastolic 62–92
[2017-04-30] MEDS: IPRATROPIUM/ALBUTEROL 0.5-3(2.5)MG/3ML NEB INH PRN ×2 (01:26→10:36)
[2017-04-30 06:25] LABS: BASOPHILS % 0.7 % (0.0-2.0); EOSINOPHILS % 2.9 % (0.0-5.0); HEMATOCRIT. 30.1 % (42.0-52.0); HEMOGLOBIN. 9.6 g/dL (14.0-18.0); LYMPHOCYTES % 33.7 % (20.0-50.0); MEAN CORPUSCULAR HEMOGLOBIN 33.9 pg (28.0-32.0); MEAN CORPUSCULAR VOLUME 106.4 fL (80.0-94.0); MEAN PLATELET VOLUME 6.9 fl (7.4-10.4); MONOCYTES % 9.2 % (2.0-8.0); NEUTROPHILS % 53.5 % (40.0-76.0); PLATELET 233 x1000/uL (130-400); RED BLOOD CELL COUNT 2.83 mill/uL (4.7-6.1)
[2017-04-30 07:04] LABS: CREATINE KINASE MB FRACTION 10.9 ng/mL (0.5-3.6); TROPONIN I 0.03 ng/mL (0.00-0.04)
[2017-04-30] MEDS: HYDROCODONE/ACETAMINOPHEN 5/325MG TABLET PO PRN ×2 (12:00→18:43)
[2017-04-30] MEDS ORDERED: TRAMADOL 50MG TABLET PO PRN (14:15)
[2017-04-30] MEDS ORDERED: MEDICATION NOT ON FORMULARY EA (Dolutegravir Sodium (Tivicay) 50 MG) PO SCH (14:15)
[2017-04-30] MEDS ORDERED: LAMIVUDINE 100 MG PO SCH (14:15)
[2017-04-30] MEDS ORDERED: ABACAVIR SULFATE 300MG TABLET PO SCH (14:15)
[2017-04-30] MEDS ORDERED: MEDICATION NOT ON FORMULARY EA (Abacavir/Dolutegravir/Lamivudi (Triumeq Tablet) 1 EACH) PO SCH (14:15)
[2017-04-30 15:26] LABS: *AMPHETAMINES SCREEN URINE NEGATIVE (NEGATIVE); *BARBITURATES SCREEN URINE NEGATIVE (NEGATIVE); *BENZODIAZEPINES SCREEN URINE NEGATIVE (NEGATIVE); *COCAINE SCREEN URINE PRESUMTIVE POSITIVE (NEGATIVE); CANNABINOID URINE SCREEN NEGATIVE (NEGATIVE); METHADONE URINE SCREEN NEGATIVE (NEGATIVE); OPIATES URINE SCREEN PRESUMTIVE POSITIVE (NEGATIVE); PHENCYCLIDINE URINE SCREEN NEGATIVE (NEGATIVE)
[2017-04-30] MEDS: CITRIC ACID/SODIUM CITRATE SOLN 30ML UDC PO SCH ×2 (17:00→21:00)
[2017-04-30] MEDS ORDERED: MOMETASONE INH SCH (17:00)
[2017-04-30] MEDS ORDERED: FORMOTEROL INH SCH (17:00)
[2017-04-30] MEDS ORDERED: [UNRECOGNIZED DRUG - OTHER] INH SCH (17:00)
[2017-04-30] MEDS ORDERED: HEPARIN SODIUM 1,000 UNIT/1ML VIAL IV NR (17:42)
[2017-04-30] MEDS ORDERED: MEDICATION NOT ON FORMULARY EA (Sevelamer Hcl (Renagel) 800 MG) PO SCH (17:50)
[2017-04-30] MEDS: SEVELAMER CARBONATE 800 MG TABLET PO SCH (18:37)
[2017-04-30] MEDS: FOLIC ACID 1MG TABLET PO SCH (18:38)
[2017-04-30] MEDS: BUDESONIDE 0.5MG/2ML NEB HHN SCH (20:44)
[2017-04-30] MEDS: ALBUTEROL (0.083%) 2.5MG/3ML NEB HHN SCH (20:45)
[2017-04-30] MEDS ORDERED: CITRIC ACID PO SCH (21:00)
[2017-04-30] MEDS ORDERED: SODIUM CITRATE PO SCH (21:00)
[2017-04-30] MEDS ORDERED: [UNRECOGNIZED DRUG - OTHER] PO SCH (21:00)
[2017-04-30] MEDS ORDERED: LORAZEPAM 0.5MG TABLET PO PRN (21:00)
[2017-04-30] MEDS ORDERED: TAMSULOSIN HCL 0.4MG SR CAPSULE PO SCH (21:00)
[2017-04-30] MEDS: AMLODIPINE 5MG TABLET PO SCH (21:25)
[2017-04-30 23:43] LABS: CREATINE KINASE 332 IU/L (39-308); CREATINE KINASE MB FRACTION 6.4 ng/mL (0.5-3.6); TROPONIN I < 0.02 ng/mL (0.00-0.04)
[2017-05-01] VITALS: BP 100/69
[2017-05-01] MEDS: ALBUTEROL (0.083%) 2.5MG/3ML NEB HHN SCH ×2 (01:20→08:52)
[2017-05-01 04:00] VITALS: BP 113/66
[2017-05-01] MEDS: BUDESONIDE 0.5MG/2ML NEB HHN SCH (06:00)
[2017-05-01 06:28] LABS: BASOPHILS % 0.6 % (0.0-2.0); EOSINOPHILS % 3.2 % (0.0-5.0); HEMATOCRIT. 28.4 % (42.0-52.0); LYMPHOCYTES % 31.1 % (20.0-50.0); MEAN CORPUSCULAR HEMOGLOBIN 34.1 pg (28.0-32.0); MEAN CORPUSCULAR VOLUME 107.2 fL (80.0-94.0); MEAN PLATELET VOLUME 7.2 fl (7.4-10.4); MONOCYTES % 11.2 % (2.0-8.0); NEUTROPHILS % 53.9 % (40.0-76.0); PLATELET 185 x1000/uL (130-400); RED BLOOD CELL COUNT 2.65 mill/uL (4.7-6.1); RED CELL DISTRIBUTION WIDTH 20.4 % (11.6-14.6)
[2017-05-01] MEDS ORDERED: LEVOTHYROXINE SODIUM 50MCG TABLET PO SCH (07:20)
[2017-05-01 08:00] VITALS: BP_SYST 122; BP_SYST 140; BP_SYST 147; BP_DIAS 75; BP_DIAS 76; BP_DIAS 77
[2017-05-01] MEDS: FOLIC ACID 1MG TABLET PO SCH (08:29)
[2017-05-01] MEDS: HYDROCODONE/ACETAMINOPHEN 5/325MG TABLET PO PRN (08:29)
[2017-05-01] MEDS: SEVELAMER CARBONATE 800 MG TABLET PO SCH ×3 (08:29→17:50)
[2017-05-01] MEDS: AMLODIPINE 5MG TABLET PO SCH (08:30)
[2017-05-01] MEDS: CITRIC ACID/SODIUM CITRATE SOLN 30ML UDC PO SCH ×3 (08:30→17:00)
[2017-05-01] MEDS ORDERED: FOLIC ACID/VITAMIN B COMP W-C TABLET PO SCH (09:00)
[2017-05-01 12:00] VITALS: BP 118/68
[2017-05-01 16:00] VITALS: BP 155/81
[2017-05-01 17:44] VITALS: BP 155/81
[2017-05-02 09:06] LABS: ABSOLUTE EOSINOPHILS 0.2 x10E3/uL (0.0-0.4); ABSOLUTE LYMPHOCYTES 2.2 x10E3/uL (0.7-3.1); ABSOLUTE MONOCYTES 0.5 x10E3/uL (0.1-0.9); ABSOLUTE NEUTROPHILS 2.9 x10E3/uL (1.4-7.0); BASOPHILS 0 % (Not Estab.); HEMATOCRIT 31.5 % (37.5-51.0); HEMOGLOBIN 9.6 g/dL (12.6-17.7); IMMATURE GRANULOCYTES 0 % (Not Estab.); LYMPHOCYTES 38 % (Not Estab.); MEAN CORPUSCULAR HEMOGLOBIN 32.5 pg (26.6-33.0); MEAN CORPUSCULAR HGB CONC. 30.5 g/dL (31.5-35.7); MEAN CORPUSCULAR VOLUME 107 fL (79-97); MONOCYTES 8 % (Not Estab.); NEUTROPHILS 51 % (Not Estab.); PLATELETS 205 x10E3/uL (150-379); RBC 2.95 x10E6/uL (4.14-5.80); RED CELL DISTRIBUTION WIDTH 19.8 % (12.3-15.4); WBC 5.8 x10E3/uL (3.4-10.8)
[2017-05-02 14:16] LABS: % CD 3 POS. LYMPHOCYTES 88.4 % (57.5-86.2); % CD 4 POS. LYMPHOCYTES 33.1 % (30.8-58.5); % CD 8 POS. LYMPH 55.2 % (12.0-35.5); ABSOLUTE CD 3 1945 /uL (622-2402); ABSOLUTE CD 4 HELPER 728 /uL (359-1519); ABSOLUTE CD 8 SUPPRESSOR 1214 /uL (109-897)
== END 2017-05-01 19:30 | disposition home or self-care (01) | DRG 890 ==
LOC: ER 18:10 → 6WST 20:16 → EDBEDREQTM 20:21 → EDBEDREQ 20:21 → ENRESERV 20:40
PROVIDERS: ADMIT Internal Medicine; ATTEND Internal Medicine
PROC: 5A1D70Z Performance of Urinary Filtration, Intermittent, Less than 6 Hours Per Day (ICD-10-PCS; principal; 2017-04-30)
DX: G93.40 Encephalopathy, unspecified (principal); B20 Human immunodeficiency virus [HIV] disease; N18.6 End stage renal disease; E43 Unspecified severe protein-calorie malnutrition; Z99.2 Dependence on renal dialysis; Z87.891 Personal history of nicotine dependence; E87.6 Hypokalemia; D63.1 Anemia in chronic kidney disease; E78.00 Pure hypercholesterolemia, unspecified; F14.90 Cocaine use, unspecified, uncomplicated; F41.9 Anxiety disorder, unspecified; N40.0 Benign prostatic hyperplasia without lower urinary tract symptoms; K21.9 Gastro-esophageal reflux disease without esophagitis; J44.9 Chronic obstructive pulmonary disease, unspecified; I13.11 Hypertensive heart and chronic kidney disease without heart failure, with stage 5 chronic kidney disease, or end stage renal disease; Z79.899 Other long term (current) drug therapy; Z86.73 Personal history of transient ischemic attack (TIA), and cerebral infarction without residual deficits; E83.51 Hypocalcemia; E87.8 Other disorders of electrolyte and fluid balance, not elsewhere classified
CPT/HCPCS: 36415; 70450; 70551; 71010; 80048; 80053; 80061; 80305; 82550; 82553; 83605; 83735; 83880; 84443; 84484; 85025; 85610; 86359; 86360; 87040; 87086; 93005; 93970; 94640; 99285; G0482; J1644; J7030; J7611; J7620; J7626

== ENCOUNTER 2017-07-30 09:10 | Inpatient (IN) | payer MEDICAID ==
[~2017-07-30] VITALS: Ht 177.8 cm; Wt 58.1 kg
[2017-07-30] MEDS ORDERED: METHYLPREDNISOLONE SOD SUCC 125 MG/2 ML VIAL IV STA (09:27)
[2017-07-30] MEDS ORDERED: NALOXONE HCL 1 MG/ML 2ML VIAL IV ONE (09:30)
[2017-07-30] MEDS ORDERED: IPRATROPIUM/ALBUTEROL 0.5-3(2.5)MG/3ML NEB HHN ONE (09:45)
[2017-07-30] MEDS ORDERED: LIDOCAINE HCL 1% 20ML VIAL (Pyxis) INJ ONE (10:03)
[2017-07-30 10:09] LABS: EOSINOPHILS % 0.9 % (0.0-5.0); HEMATOCRIT. 38.2 % (42.0-52.0); HEMOGLOBIN. 12.2 g/dL (14.0-18.0); LYMPHOCYTES % 18.4 % (20.0-50.0); MEAN CORPUSCULAR HEMOGLOBIN 33.4 pg (28.0-32.0); MEAN CORPUSCULAR VOLUME 104.4 fL (80.0-94.0); MEAN PLATELET VOLUME 7.8 fl (7.4-10.4); MONOCYTES % 9.4 % (2.0-8.0); NEUTROPHILS % 70.3 % (40.0-76.0); PLATELET 206 x1000/uL (130-400); RED BLOOD CELL COUNT 3.66 mill/uL (4.7-6.1); RED CELL DISTRIBUTION WIDTH 19.1 % (11.6-14.6)
[2017-07-30 10:16] LABS: PARTIAL THROMBOPLASTIN TIME 27.8 sec (23.4-31.0); PROTHROMBIN TIME 10.6 sec (9.4-11.6)
[2017-07-30 10:22] LABS: CLARITY URINE CLEAR (CLEAR); COLOR URINE YELLOW (YELLOW); KETONES URINE TRACE (NEGATIVE); LEUKOCYTE ESTERASE URINE NEGATIVE (NEGATIVE); NITRITE URINE NEGATIVE (NEGATIVE); OCCULT BLOOD URINE TRACE (NEGATIVE); PH URINE >=9.0 (4.5-8.0); PROTEIN URINE 4+ (NEGATIVE); SPECIFIC GRAVITY URINE 1.031 (1.005-1.030); UROBILINOGEN URINE 0.2 E.U./dL (0.2-1.0)
[2017-07-30 10:26] LABS: CARBON DIOXIDE 25 mEq/L (21-32); CHLORIDE 103 mEq/L (98-107); ETHANOL BLOOD < 10 mg/dL; TROPONIN I 0.04 ng/mL (0.00-0.04)
[2017-07-30 10:58] LABS: *AMPHETAMINES SCREEN URINE NEGATIVE (NEGATIVE); *BARBITURATES SCREEN URINE NEGATIVE (NEGATIVE); *BENZODIAZEPINES SCREEN URINE NEGATIVE (NEGATIVE); *COCAINE SCREEN URINE PRESUMTIVE POSITIVE (NEGATIVE); CANNABINOID URINE SCREEN NEGATIVE (NEGATIVE); METHADONE URINE SCREEN NEGATIVE (NEGATIVE); OPIATES URINE SCREEN PRESUMTIVE POSITIVE (NEGATIVE); PHENCYCLIDINE URINE SCREEN NEGATIVE (NEGATIVE)
[2017-07-30 11:54] LABS: BG BASE EXCESS -0.9 mmol/L (-2.0-2.0); BG CARBOXYHEMOGLOBIN 3.7 % (0.5-1.5); BG DEOXYHEMOGLOBIN 7.5 % (0.0-5.0); BG FRACTION INSPIRED OXYGEN 28; BG HCO3 ACT 25.8 mmol/L (22.0-26.0); BG METHEMOGLOBIN 0.3 % (0.0-1.5); BG OXYGEN SATURATION 92.2 % (92.0-98.5); BG OXYHEMOGLOBIN 88.5 % (94.0-97.0); BG PCO2 51.4 mmHg (35.0-45.0); BG PH 7.319 (7.350-7.450); BG SAMPLE SITE RIGHT BRACHIAL; BG TOTAL HEMOGLOBIN 12.5 g/dL (12.0-18.0); BG VENT MODE NASAL CANNULA
[2017-07-30 11:55] VITALS: BP 116/78
[2017-07-30] MEDS ORDERED: IPRATROPIUM/ALBUTEROL 0.5-3(2.5)MG/3ML NEB HHN PRN (12:30)
[2017-07-30] MEDS ORDERED: LORAZEPAM 0.5MG TABLET PO PRN (12:30)
[2017-07-30 14:00] VITALS: BP 120/76
[2017-07-30] MEDS: METHYLPREDNISOLONE SOD SUCC 40 MG/ML VIAL IV SCH ×2 (14:00→22:18)
[2017-07-30] MEDS: SEVELAMER CARBONATE 800 MG TABLET PO SCH ×2 (14:01→17:18)
[2017-07-30 16:00] VITALS: BP 117/71
[2017-07-30] MEDS: IPRATROPIUM/ALBUTEROL 0.5-3(2.5)MG/3ML NEB HHN SCH ×3 (16:01→20:04)
[2017-07-30] MEDS: BUDESONIDE 0.5MG/2ML NEB HHN SCH ×3 (16:01→20:05)
[2017-07-30] MEDS: NICOTINE 14MG PATCH TD SCH (18:02)
[2017-07-30 20:00] VITALS: BP 104/84
[2017-07-30] MEDS: AMLODIPINE 5MG TABLET PO SCH (21:00)
[2017-07-30] MEDS: TAMSULOSIN HCL 0.4MG SR CAPSULE PO SCH (22:18)
[2017-07-30] MEDS: TRAMADOL 50MG TABLET PO PRN (22:20)
[2017-07-31] VITALS: BP_SYST 106; BP_SYST 99; BP_DIAS 63; BP_DIAS 65
[2017-07-31] MEDS: IPRATROPIUM/ALBUTEROL 0.5-3(2.5)MG/3ML NEB HHN SCH ×6 (00:13→20:49)
[2017-07-31 04:00] VITALS: BP 140/77
[2017-07-31] MEDS: TRAMADOL 50MG TABLET PO PRN (05:52)
[2017-07-31 06:36] LABS: BASOPHILS % 0.1 % (0.0-2.0); HEMATOCRIT. 35.8 % (42.0-52.0); HEMOGLOBIN. 11.6 g/dL (14.0-18.0); LYMPHOCYTES % 13.8 % (20.0-50.0); MEAN CORPUSCULAR HEMOGLOBIN 33.9 pg (28.0-32.0); MEAN CORPUSCULAR VOLUME 104.5 fL (80.0-94.0); MEAN PLATELET VOLUME 8.3 fl (7.4-10.4); MONOCYTES % 6.3 % (2.0-8.0); NEUTROPHILS % 79.8 % (40.0-76.0); PLATELET 169 x1000/uL (130-400); RED BLOOD CELL COUNT 3.43 mill/uL (4.7-6.1); RED CELL DISTRIBUTION WIDTH 19.5 % (11.6-14.6)
[2017-07-31 08:00] VITALS: BP 132/80
[2017-07-31] MEDS: AMLODIPINE 5MG TABLET PO SCH (09:00)
[2017-07-31] MEDS ORDERED: ABACAVIR SULFATE 300MG TABLET PO SCH (09:00)
[2017-07-31] MEDS: FOLIC ACID/VITAMIN B COMP W-C TABLET PO SCH (10:22)
[2017-07-31] MEDS: LEVOTHYROXINE SODIUM 50MCG TABLET PO SCH (10:22)
[2017-07-31] MEDS: SEVELAMER CARBONATE 800 MG TABLET PO SCH ×3 (10:23→18:46)
[2017-07-31] MEDS: NICOTINE 14MG PATCH TD SCH (10:24)
[2017-07-31 12:00] VITALS: BP 111/67
[2017-07-31] MEDS ORDERED: MORPHINE SULFATE 2 MG/ML CPJ (NOT FOR IM USE) IV PRN (12:45)
[2017-07-31] MEDS ORDERED: LORAZEPAM 0.5MG TABLET PO PRN (13:00)
[2017-07-31] MEDS ORDERED: LORAZEPAM 1MG TABLET PO PRN (13:00)
[2017-07-31] MEDS ORDERED: CLONIDINE HCL 0.1MG/24HR PATCH TD SCH (14:00)
[2017-07-31] MEDS: HYDROCODONE/ACETAMINOPHEN 5/325MG TABLET PO PRN ×2 (14:27→20:15)
[2017-07-31] MEDS: BUDESONIDE 0.5MG/2ML NEB HHN SCH ×2 (15:19→20:46)
[2017-07-31 16:00] VITALS: BP 100/71
[2017-07-31] MEDS ORDERED: PREDNISONE 20MG TABLET PO SCH (17:00)
[2017-07-31 19:57] VITALS: BP 133/74
[2017-07-31] MEDS: TAMSULOSIN HCL 0.4MG SR CAPSULE PO SCH (20:15)
[2017-08-01] VITALS: BP 121/76
[2017-08-01] MEDS: IPRATROPIUM/ALBUTEROL 0.5-3(2.5)MG/3ML NEB HHN SCH ×3 (00:24→11:36)
[2017-08-01] MEDS: HYDROCODONE/ACETAMINOPHEN 5/325MG TABLET PO PRN ×2 (02:40→10:15)
[2017-08-01 04:00] VITALS: BP 158/54
[2017-08-01 07:39] LABS: BASOPHILS % 0.2 % (0.0-2.0); HEMATOCRIT. 37.9 % (42.0-52.0); HEMOGLOBIN. 12.2 g/dL (14.0-18.0); LYMPHOCYTES % 9.8 % (20.0-50.0); MEAN CORPUSCULAR HEMOGLOBIN 34.1 pg (28.0-32.0); MEAN CORPUSCULAR VOLUME 105.5 fL (80.0-94.0); MEAN PLATELET VOLUME 7.9 fl (7.4-10.4); MONOCYTES % 5.3 % (2.0-8.0); NEUTROPHILS % 84.7 % (40.0-76.0); PLATELET 174 x1000/uL (130-400); RED BLOOD CELL COUNT 3.59 mill/uL (4.7-6.1); RED CELL DISTRIBUTION WIDTH 19.6 % (11.6-14.6)
[2017-08-01 08:00] VITALS: BP 120/78
[2017-08-01] MEDS ORDERED: SODIUM POLYSTYRENE SULFONATE 15 G/60 ML BOT PO NR (09:30)
[2017-08-01] MEDS: LEVOTHYROXINE SODIUM 50MCG TABLET PO SCH (09:33)
[2017-08-01] MEDS: FOLIC ACID/VITAMIN B COMP W-C TABLET PO SCH (09:33)
[2017-08-01] MEDS: SEVELAMER CARBONATE 800 MG TABLET PO SCH (09:34)
[2017-08-01] MEDS ORDERED: NICO-681 TD (09:57)
[2017-08-01] MEDS ORDERED: P20 PO (09:57)
[2017-08-01] MEDS ORDERED: LORA1TAB PO (09:58)
[2017-08-01] MEDS ORDERED: IPRA3AMP9 HHN (09:58)
[2017-08-01] MEDS ORDERED: ABACAVIR SULFATE 300MG TABLET PO SCH (11:00)
[2017-08-01] MEDS ORDERED: NICOTINE 14MG PATCH TD SCH (11:00)
[2017-08-01] MEDS: BUDESONIDE 0.5MG/2ML NEB HHN SCH (11:37)
[2017-08-01 14:03] VITALS: BP 110/76
[2017-08-01 14:09] VITALS: BP 120/68
== END 2017-08-01 14:21 | disposition home or self-care (01) | DRG 816 ==
LOC: ER 09:23 → EDBEDREQSVC 11:51 → EDBEDREQ 11:51 → 7WST 12:02 → EDBEDREQ 12:04 → ENRESERV 12:49
PROVIDERS: ADMIT Internal Medicine; ATTEND Internal Medicine
PROC: 05H733Z Insertion of Infusion Device into Right Axillary Vein, Percutaneous Approach (ICD-10-PCS; principal; 2017-07-30)
PROC: 5A1D70Z Performance of Urinary Filtration, Intermittent, Less than 6 Hours Per Day (ICD-10-PCS; 2017-07-30)
PROC: B54MZZA Ultrasonography of Right Upper Extremity Veins, Guidance (ICD-10-PCS; 2017-07-30)
PROC: 5A1D70Z Performance of Urinary Filtration, Intermittent, Less than 6 Hours Per Day (ICD-10-PCS; 2017-07-31)
DX: T40.1X1A Poisoning by heroin, accidental (unintentional), initial encounter (principal); J96.01 Acute respiratory failure with hypoxia; E43 Unspecified severe protein-calorie malnutrition; G92 Toxic encephalopathy; N18.6 End stage renal disease; I12.0 Hypertensive chronic kidney disease with stage 5 chronic kidney disease or end stage renal disease; E87.2 Acidosis; J44.1 Chronic obstructive pulmonary disease with (acute) exacerbation; F17.210 Nicotine dependence, cigarettes, uncomplicated; F14.10 Cocaine abuse, uncomplicated; B19.20 Unspecified viral hepatitis C without hepatic coma; D63.8 Anemia in other chronic diseases classified elsewhere; N40.0 Benign prostatic hyperplasia without lower urinary tract symptoms; E03.9 Hypothyroidism, unspecified; E87.5 Hyperkalemia; F11.23 Opioid dependence with withdrawal; J98.11 Atelectasis; G40.909 Epilepsy, unspecified, not intractable, without status epilepticus; Z91.19 Patient's noncompliance with other medical treatment and regimen; Y92.89 Other specified places as the place of occurrence of the external cause; Z99.2 Dependence on renal dialysis
CPT/HCPCS: 36415; 36569; 36600; 71045; 73030; 76937; 80048; 80053; 80305; 81001; 82375; 82805; 82962; 83605; 83880; 84443; 84484; 85025; 85610; 85730; 86850; 86900; 87040; 93005; 94640; 94664; 96374; 96375; 99291; C1725; C1769; G0482; J2310; J2920; J2930; J3490; J7512; J7620; J7626

== ENCOUNTER 2017-09-17 16:05 | Emergency (ER) | payer MEDICAID ==
[~2017-09-17] VITALS: Ht 165.1 cm; Wt 61.5 kg
[~2017-09-17 16:05] MED LIST changes: +IPRA3AMP9 HHN; +LORA1TAB PO; +NICO-681 TD; +P20 PO
[2017-09-17] MEDS ORDERED: ONDANSETRON HCL 4MG/2ML VIAL IV ONE (18:15)
[2017-09-17 18:17] LABS: BASOPHILS % 0.9 % (0.0-2.0); EOSINOPHILS % 0.9 % (0.0-5.0); HEMATOCRIT. 38.2 % (42.0-52.0); HEMOGLOBIN. 12.5 g/dL (14.0-18.0); LYMPHOCYTES % 13.6 % (20.0-50.0); MEAN CORPUSCULAR HEMOGLOBIN 34.1 pg (28.0-32.0); MEAN CORPUSCULAR VOLUME 104.4 fL (80.0-94.0); MEAN PLATELET VOLUME 7.9 fl (7.4-10.4); MONOCYTES % 5.9 % (2.0-8.0); NEUTROPHILS % 78.7 % (40.0-76.0); PLATELET 224 x1000/uL (130-400); RED BLOOD CELL COUNT 3.66 mill/uL (4.7-6.1); RED CELL DISTRIBUTION WIDTH 17.6 % (11.6-14.6)
[2017-09-17 18:21] LABS: CHLORIDE 100 mEq/L (98-107)
[2017-09-17 18:23] LABS: PROTHROMBIN TIME 10.1 sec (9.4-11.6)
[2017-09-17 19:30] LABS: CLARITY URINE CLEAR (CLEAR); COLOR URINE YELLOW (YELLOW); KETONES URINE TRACE (NEGATIVE); LEUKOCYTE ESTERASE URINE NEGATIVE (NEGATIVE); NITRITE URINE NEGATIVE (NEGATIVE); OCCULT BLOOD URINE 1+ (NEGATIVE); PH URINE 8.5 (4.5-8.0); PROTEIN URINE 4+ (NEGATIVE); SPECIFIC GRAVITY URINE 1.024 (1.005-1.030); UROBILINOGEN URINE 0.2 E.U./dL (0.2-1.0)
[2017-09-17 20:20] VITALS: BP 158/92
[2017-09-18 12:09] LABS: *AMPHETAMINES SCREEN URINE NEGATIVE (NEGATIVE); *BARBITURATES SCREEN URINE NEGATIVE (NEGATIVE); *BENZODIAZEPINES SCREEN URINE NEGATIVE (NEGATIVE); *COCAINE SCREEN URINE PRESUMTIVE POSITIVE (NEGATIVE); CANNABINOID URINE SCREEN NEGATIVE (NEGATIVE); METHADONE URINE SCREEN NEGATIVE (NEGATIVE); OPIATES URINE SCREEN PRESUMTIVE POSITIVE (NEGATIVE); PHENCYCLIDINE URINE SCREEN NEGATIVE (NEGATIVE)
== END 2017-09-17 20:54 | disposition home or self-care (01) ==
LOC: ER 16:05
DX: N19 Unspecified kidney failure (principal); F17.200 Nicotine dependence, unspecified, uncomplicated; J44.9 Chronic obstructive pulmonary disease, unspecified; R05 Cough; R11.2 Nausea with vomiting, unspecified; F14.10 Cocaine abuse, uncomplicated; F12.10 Cannabis abuse, uncomplicated; Z99.2 Dependence on renal dialysis; Z98.890 Other specified postprocedural states
CPT/HCPCS: 36415; 71045; 80053; 80305; 81003; 83690; 84484; 85025; 85610; 93005; 96374; 99285; J2405; Z7610

== ENCOUNTER 2017-10-02 18:39 | Emergency (ER) | payer MEDICAID ==
[~2017-10-02] VITALS: Ht 165.1 cm; Wt 59.0 kg
[2017-10-02 19:59] LABS: CLARITY URINE CLEAR (CLEAR); COLOR URINE YELLOW (YELLOW); KETONES URINE TRACE (NEGATIVE); LEUKOCYTE ESTERASE URINE TRACE (NEGATIVE); NITRITE URINE NEGATIVE (NEGATIVE); OCCULT BLOOD URINE 1+ (NEGATIVE); PH URINE >=9.0 (4.5-8.0); PROTEIN URINE 4+ (NEGATIVE); SPECIFIC GRAVITY URINE 1.032 (1.005-1.030); UROBILINOGEN URINE 0.2 E.U./dL (0.2-1.0)
[2017-10-02 20:01] LABS: BASOPHILS % 0.6 % (0.0-2.0); EOSINOPHILS % 2.6 % (0.0-5.0); HEMATOCRIT. 36.6 % (42.0-52.0); HEMOGLOBIN. 12.2 g/dL (14.0-18.0); LYMPHOCYTES % 13.6 % (20.0-50.0); MEAN CORPUSCULAR HEMOGLOBIN 34.3 pg (28.0-32.0); MEAN CORPUSCULAR VOLUME 103.2 fL (80.0-94.0); MEAN PLATELET VOLUME 7.5 fl (7.4-10.4); MONOCYTES % 7.1 % (2.0-8.0); NEUTROPHILS % 76.1 % (40.0-76.0); PLATELET 153 x1000/uL (130-400); RED BLOOD CELL COUNT 3.54 mill/uL (4.7-6.1); RED CELL DISTRIBUTION WIDTH 16.6 % (11.6-14.6)
[2017-10-02 20:05] LABS: PROTHROMBIN TIME 10.3 sec (9.4-11.6)
[2017-10-02 20:06] LABS: CHLORIDE 100 mEq/L (98-107)
[2017-10-02 20:12] LABS: ETHANOL BLOOD < 10 mg/dL
[2017-10-02 20:20] LABS: *AMPHETAMINES SCREEN URINE NEGATIVE (NEGATIVE); *BARBITURATES SCREEN URINE NEGATIVE (NEGATIVE); *BENZODIAZEPINES SCREEN URINE NEGATIVE (NEGATIVE); *COCAINE SCREEN URINE PRESUMTIVE POSITIVE (NEGATIVE); CANNABINOID URINE SCREEN NEGATIVE (NEGATIVE); METHADONE URINE SCREEN NEGATIVE (NEGATIVE); OPIATES URINE SCREEN PRESUMTIVE POSITIVE (NEGATIVE); PHENCYCLIDINE URINE SCREEN NEGATIVE (NEGATIVE)
[2017-10-02] MEDS ORDERED: CEFTRIAXONE 1 G PREMIX 50 ML IV SCH (21:00)
[2017-10-02 21:41] VITALS: BP 156/84
== END 2017-10-02 21:41 | disposition home or self-care (01) ==
LOC: ER 20:45
DX: N18.6 End stage renal disease (principal); N39.0 Urinary tract infection, site not specified; F11.10 Opioid abuse, uncomplicated; F14.10 Cocaine abuse, uncomplicated; D50.9 Iron deficiency anemia, unspecified; R42 Dizziness and giddiness; J44.9 Chronic obstructive pulmonary disease, unspecified; F17.200 Nicotine dependence, unspecified, uncomplicated; Z99.2 Dependence on renal dialysis
CPT/HCPCS: 36415; 71045; 80053; 80305; 81003; 83880; 84484; 85025; 85610; 93005; 96365; 99285; G0482; J0696; Z7610

== ENCOUNTER 2017-11-12 18:21 | Inpatient (IN) | payer MEDICAID ==
[~2017-11-12] VITALS: Ht 162.6 cm; Wt 49.9 kg
[2017-11-12] MEDS ORDERED: ACETAMINOPHEN 325MG TABLET PO STA (18:49)
[2017-11-12] MEDS ORDERED: SODIUM CHLORIDE 0.9% 1,000 ML IV ONE (19:09)
[2017-11-12] MEDS ORDERED: PIPERACILLIN/TAZ 3.375G PREMIX 50 ML IV ONE (19:45)
[2017-11-12] MEDS ORDERED: VANCOMYCIN 1 G PREMIX 200 ML IV ONE (19:45)
[2017-11-12 19:56] LABS: CHLORIDE 102 mEq/L (98-107)
[2017-11-12 20:00] LABS: ETHANOL BLOOD < 10 mg/dL
[2017-11-12 20:45] LABS: BASOPHILS % 0.4 % (0.0-2.0); EOSINOPHILS % 1.5 % (0.0-5.0); HEMATOCRIT. 36.2 % (42.0-52.0); HEMOGLOBIN. 11.8 g/dL (14.0-18.0); LYMPHOCYTES % 10.5 % (20.0-50.0); MEAN CORPUSCULAR HEMOGLOBIN 34.8 pg (28.0-32.0); MEAN CORPUSCULAR VOLUME 107.2 fL (80.0-94.0); MEAN PLATELET VOLUME 7.8 fl (7.4-10.4); MONOCYTES % 8.1 % (2.0-8.0); NEUTROPHILS % 79.5 % (40.0-76.0); PLATELET 179 x1000/uL (130-400); RED BLOOD CELL COUNT 3.38 mill/uL (4.7-6.1); RED CELL DISTRIBUTION WIDTH 16.7 % (11.6-14.6)
[2017-11-12 20:46] LABS: PROTHROMBIN TIME 10.7 sec (9.4-11.6)
[2017-11-12] MEDS ORDERED: LORAZEPAM 2MG/ML CPJ IV PRN (21:15)
[2017-11-12] MEDS ORDERED: ACETAMINOPHEN 325MG TABLET PO PRN (21:15)
[2017-11-12] MEDS ORDERED: HYDROCODONE/ACETAMINOPHEN 5/325MG TABLET PO PRN (21:15)
[2017-11-12] MEDS ORDERED: PIPERACILLIN/TAZ 3.375G PREMIX 50 ML IV SCH (21:15)
[2017-11-12] MEDS ORDERED: DOCUSATE SODIUM 100MG CAPSULE PO PRN (21:15)
[2017-11-12] MEDS ORDERED: CLONIDINE 0.1MG TABLET PO PRN (21:15)
[2017-11-12 22:59] LABS: CREATINE KINASE MB FRACTION 5.4 ng/mL (0.5-3.6)
[2017-11-12 23:06] LABS: CLARITY URINE CLEAR (CLEAR); COLOR URINE YELLOW (YELLOW); KETONES URINE NEGATIVE (NEGATIVE); LEUKOCYTE ESTERASE URINE NEGATIVE (NEGATIVE); NITRITE URINE NEGATIVE (NEGATIVE); OCCULT BLOOD URINE NEGATIVE (NEGATIVE); PH URINE >=9.0 (4.5-8.0); PROTEIN URINE 4+ (NEGATIVE); SPECIFIC GRAVITY URINE 1.052 (1.005-1.030); UROBILINOGEN URINE 0.2 E.U./dL (0.2-1.0)
[2017-11-12 23:17] LABS: *AMPHETAMINES SCREEN URINE NEGATIVE (NEGATIVE); *BARBITURATES SCREEN URINE NEGATIVE (NEGATIVE); *BENZODIAZEPINES SCREEN URINE NEGATIVE (NEGATIVE); *COCAINE SCREEN URINE PRESUMTIVE POSITIVE (NEGATIVE); METHADONE URINE SCREEN NEGATIVE (NEGATIVE); OPIATES URINE SCREEN PRESUMTIVE POSITIVE (NEGATIVE)
[2017-11-12 23:18] LABS: CANNABINOID URINE SCREEN NEGATIVE (NEGATIVE); PHENCYCLIDINE URINE SCREEN NEGATIVE (NEGATIVE)
[2017-11-13] VITALS (7 sets, daily range): BP systolic 117–177; BP diastolic 68–85
[2017-11-13] MEDS: PIPERACILLIN/TAZ 2.25G PREMIX 50 ML IV SCH ×2 (05:43→20:32)
[2017-11-13] MEDS: ONDANSETRON 4MG ODT PO PRN ×2 (05:52→18:09)
[2017-11-13] MEDS ORDERED: DOCUSATE SODIUM 100MG CAPSULE PO PRN (09:00)
[2017-11-13] MEDS ORDERED: ACETAMINOPHEN 325MG TABLET PO PRN (09:00)
[2017-11-13] MEDS ORDERED: MAGNESIUM/ALUMINUM HYDROXIDE/SIMETHICONE 30ML UDC PO PRN (09:00)
[2017-11-13] MEDS ORDERED: DIPHENHYDRAMINE 50MG/ML VIAL IV PRN (09:00)
[2017-11-13] MEDS ORDERED: GUAIFENESIN 200MG/10ML SUGAR FREE UDC PO PRN (09:00)
[2017-11-13] MEDS ORDERED: LORAZEPAM 0.5MG TABLET PO PRN (09:00)
[2017-11-13] MEDS ORDERED: ONDANSETRON HCL 4MG/2ML VIAL IV PRN (09:00)
[2017-11-13] MEDS ORDERED: ACETAMINOPHEN 650MG SUPP PR PRN (09:00)
[2017-11-13] MEDS ORDERED: ACETAMINOPHEN 650MG/20.3ML UDC GT PRN (09:00)
[2017-11-13] MEDS ORDERED: NA PHOS,M-B/NA PHOS,DI-BA ENEMA 118ML PR PRN (09:00)
[2017-11-13] MEDS ORDERED: HYDROCODONE/ACETAMINOPHEN 5/325MG TABLET PO PRN (09:00)
[2017-11-13] MEDS ORDERED: HYDROCODONE/ACETAMINOPHEN 10/325MG TABLET PO PRN (09:00)
[2017-11-13] MEDS: IPRATROPIUM/ALBUTEROL 0.5-3(2.5)MG/3ML NEB INH SCH ×3 (09:40→21:23)
[2017-11-13 10:19] LABS: CREATINE KINASE MB FRACTION 5.1 ng/mL (0.5-3.6)
[2017-11-13] MEDS ORDERED: IPRATROPIUM/ALBUTEROL 0.5-3(2.5)MG/3ML NEB HHN PRN (11:45)
[2017-11-13] MEDS ORDERED: LORAZEPAM 2MG/ML CPJ IM PRN (17:00)
[2017-11-13] MEDS: FOLIC ACID 1MG TABLET PO SCH (17:00)
[2017-11-13] MEDS: FOLIC ACID/VITAMIN B COMP W-C TABLET PO SCH (17:00)
[2017-11-13] MEDS: LEVOTHYROXINE SODIUM 50MCG TABLET PO SCH (17:00)
[2017-11-13 17:42] LABS: EOSINOPHILS % 3.7 % (0.0-5.0); HEMATOCRIT. 34.6 % (42.0-52.0); HEMOGLOBIN. 11.4 g/dL (14.0-18.0); LYMPHOCYTES % 12.8 % (20.0-50.0); MEAN CORPUSCULAR HEMOGLOBIN 35.4 pg (28.0-32.0); MEAN CORPUSCULAR VOLUME 107.9 fL (80.0-94.0); MEAN PLATELET VOLUME 8.4 fl (7.4-10.4); MONOCYTES % 8.4 % (2.0-8.0); NEUTROPHILS % 74.1 % (40.0-76.0); PLATELET 167 x1000/uL (130-400); RED BLOOD CELL COUNT 3.21 mill/uL (4.7-6.1); RED CELL DISTRIBUTION WIDTH 17.2 % (11.6-14.6)
[2017-11-13] MEDS ORDERED: HEPARIN 5000 UNITS/ML VIAL IV NR (17:45)
[2017-11-13] MEDS: CLOTRIMAZOLE 1% CREAM 30GM TOP SCH (18:06)
[2017-11-13] MEDS: SEVELAMER CARBONATE 800 MG TABLET PO SCH (18:09)
[2017-11-13] MEDS: LAMIVUDINE 100 MG TABLET PO SCH (18:30)
[2017-11-13] MEDS: RITONAVIR 100 MG TABLET PO SCH (18:30)
[2017-11-13] MEDS: ABACAVIR SULFATE 300MG TABLET PO SCH (18:30)
[2017-11-13] MEDS: NICOTINE 14MG PATCH TD SCH (20:33)
[2017-11-13] MEDS ORDERED: VANCOMYCIN 750 MG PREMIX 150 ML IV SCH (21:00)
[2017-11-13] MEDS ORDERED: TAMSULOSIN HCL 0.4MG SR CAPSULE PO SCH (21:00)
[2017-11-13] MEDS: LACTULOSE 20G/30ML UDC PO SCH (22:00)
[2017-11-13] MEDS: AMLODIPINE 5MG TABLET PO SCH (22:20)
[2017-11-13] MEDS: TRAMADOL 50MG TABLET PO PRN (22:25)
[2017-11-14] VITALS: BP 112/70
[2017-11-14 00:26] LABS: VITAMIN B12 SERUM 674 pg/mL (211-911)
[2017-11-14] MEDS: IPRATROPIUM/ALBUTEROL 0.5-3(2.5)MG/3ML NEB INH SCH (00:31)
[2017-11-14 04:00] VITALS: BP 152/80
[2017-11-14] MEDS: ONDANSETRON 4MG ODT PO PRN ×3 (04:45→12:17)
[2017-11-14] MEDS: PIPERACILLIN/TAZ 2.25G PREMIX 50 ML IV SCH (05:45)
[2017-11-14] MEDS: TRAMADOL 50MG TABLET PO PRN (05:47)
[2017-11-14] MEDS: LACTULOSE 20G/30ML UDC PO SCH ×2 (06:00→13:30)
[2017-11-14 06:57] LABS: BASOPHILS % 0.9 % (0.0-2.0); EOSINOPHILS % 4.1 % (0.0-5.0); HEMATOCRIT. 36.1 % (42.0-52.0); HEMOGLOBIN. 11.8 g/dL (14.0-18.0); LYMPHOCYTES % 13.7 % (20.0-50.0); MEAN CORPUSCULAR HEMOGLOBIN 35.4 pg (28.0-32.0); MEAN CORPUSCULAR VOLUME 107.9 fL (80.0-94.0); MONOCYTES % 8.9 % (2.0-8.0); NEUTROPHILS % 72.4 % (40.0-76.0); PLATELET 147 x1000/uL (130-400); RED BLOOD CELL COUNT 3.34 mill/uL (4.7-6.1); RED CELL DISTRIBUTION WIDTH 16.5 % (11.6-14.6)
[2017-11-14 07:03] LABS: AMMONIA < 10 uMol/L (<32)
[2017-11-14] MEDS: LEVOTHYROXINE SODIUM 50MCG TABLET PO SCH (07:10)
[2017-11-14] MEDS: SEVELAMER CARBONATE 800 MG TABLET PO SCH ×2 (07:40→12:16)
[2017-11-14 08:00] VITALS: BP 139/78
[2017-11-14] MEDS: ABACAVIR SULFATE 300MG TABLET PO SCH (08:13)
[2017-11-14] MEDS: FOLIC ACID/VITAMIN B COMP W-C TABLET PO SCH (08:13)
[2017-11-14] MEDS: AMLODIPINE 5MG TABLET PO SCH ×2 (08:13→12:16)
[2017-11-14] MEDS: LAMIVUDINE 100 MG TABLET PO SCH (08:13)
[2017-11-14] MEDS: NICOTINE 14MG PATCH TD SCH (08:13)
[2017-11-14] MEDS: FOLIC ACID 1MG TABLET PO SCH (08:13)
[2017-11-14] MEDS: RITONAVIR 100 MG TABLET PO SCH (08:13)
[2017-11-14] MEDS: CLOTRIMAZOLE 1% CREAM 30GM TOP SCH (08:14)
[2017-11-14 09:06] LABS: ABSOLUTE EOSINOPHILS 0.2 x10E3/uL (0.0-0.4); ABSOLUTE LYMPHOCYTES 1.6 x10E3/uL (0.7-3.1); ABSOLUTE MONOCYTES 0.7 x10E3/uL (0.1-0.9); ABSOLUTE NEUTROPHILS 7.3 x10E3/uL (1.4-7.0); BASOPHILS 0 % (Not Estab.); HEMATOCRIT 36.3 % (37.5-51.0); HEMOGLOBIN 11.7 g/dL (13.0-17.7); IMMATURE GRANULOCYTES 0 % (Not Estab.); LYMPHOCYTES 16 % (Not Estab.); MEAN CORPUSCULAR HEMOGLOBIN 34.4 pg (26.6-33.0); MEAN CORPUSCULAR HGB CONC. 32.2 g/dL (31.5-35.7); MEAN CORPUSCULAR VOLUME 107 fL (79-97); MONOCYTES 8 % (Not Estab.); NEUTROPHILS 74 % (Not Estab.); PLATELETS 113 x10E3/uL (150-379); RED CELL DISTRIBUTION WIDTH 16.6 % (12.3-15.4); WBC 9.8 x10E3/uL (3.4-10.8)
[2017-11-14 12:10] VITALS: BP 141/62
[2017-11-14 13:10] LABS: % CD 3 POS. LYMPHOCYTES 84.9 % (57.5-86.2); % CD 4 POS. LYMPHOCYTES 27.5 % (30.8-58.5); % CD 8 POS. LYMPH 56.8 % (12.0-35.5); ABSOLUTE CD 3 1358 /uL (622-2402); ABSOLUTE CD 4 HELPER 440 /uL (359-1519); ABSOLUTE CD 8 SUPPRESSOR 909 /uL (109-897); CD4/CD8 RATIO 0.48 (0.92-3.72)
[2017-11-15 09:08] LABS: FOLATE HEMATOCRIT 37.4 % (37.5-51.0)
[2017-11-17 15:10] LABS: FOLATE HEMOLYSATE 565.1 ng/mL (Not Estab.); FOLATE RBC 1511 ng/mL (>498)
== END 2017-11-14 16:25 | disposition left against medical advice (07) | DRG 206 ==
LOC: ER 18:59 → 8WST 20:35 → EDBEDREQ 20:37 → ENRESERV 21:06
PROVIDERS: ADMIT Internal Medicine; ATTEND Internal Medicine
PROC: 5A1D70Z Performance of Urinary Filtration, Intermittent, Less than 6 Hours Per Day (ICD-10-PCS; principal; 2017-11-13)
PROC: 5A1D70Z Performance of Urinary Filtration, Intermittent, Less than 6 Hours Per Day (ICD-10-PCS; 2017-11-14)
DX: T82.868A Thrombosis due to vascular prosthetic devices, implants and grafts, initial encounter (principal); J96.00 Acute respiratory failure, unspecified whether with hypoxia or hypercapnia; E43 Unspecified severe protein-calorie malnutrition; J18.8 Other pneumonia, unspecified organism; N18.6 End stage renal disease; I12.0 Hypertensive chronic kidney disease with stage 5 chronic kidney disease or end stage renal disease; J44.0 Chronic obstructive pulmonary disease with (acute) lower respiratory infection; R65.10 Systemic inflammatory response syndrome (SIRS) of non-infectious origin without acute organ dysfunction; F17.210 Nicotine dependence, cigarettes, uncomplicated; F14.129 Cocaine abuse with intoxication, unspecified; E78.00 Pure hypercholesterolemia, unspecified; E11.22 Type 2 diabetes mellitus with diabetic chronic kidney disease; E03.9 Hypothyroidism, unspecified; D64.9 Anemia, unspecified; Z53.21 Procedure and treatment not carried out due to patient leaving prior to being seen by health care provider; Y84.1 Kidney dialysis as the cause of abnormal reaction of the patient, or of later complication, without mention of misadventure at the time of the procedure; F11.10 Opioid abuse, uncomplicated; B19.20 Unspecified viral hepatitis C without hepatic coma; Z99.2 Dependence on renal dialysis; Z68.1 Body mass index [BMI] 19.9 or less, adult; Y92.89 Other specified places as the place of occurrence of the external cause
CPT/HCPCS: 36415; 71045; 80048; 80053; 80061; 80305; 81003; 82140; 82550; 82553; 82607; 82747; 83036; 83605; 83690; 83735; 84443; 84484; 85014; 85025; 85610; 86359; 86360; 87040; 87086; 87536; 93005; 93970; 94640; 96361; 96365; 99291; G0482; J1644; J2543; J3370; J7030; J7620; Q0162